=== PATIENT | female | born 1950 | race Caucasian/White ===

== ENCOUNTER 2016-05-02 14:29 | Emergency (ER) | payer OTHER ==
[~2016-05-02] VITALS: Ht 162.6 cm; Wt 64.5 kg
[~2016-05-02 14:29] MED LIST: ARMO60TA PO; DIPH25 PO; DUONSOL2 NEB; FISH1000 PO; HYDR50TA5 PO; LORA2TAB PO; LORTA10 PO; MOTR200T PO; MUCI120T; POTA595T2 PO; TAB-TAB PO; TURM450C PO; VITA500015 PO; VITA500T49 PO; WELL200T OR
[2016-05-02 14:50] VITALS: BP 122/86; PULSE 102; RESP 16; TEMP 98; O2SAT 98
--- NOTE | 2016-05-02 15:10 | PD ---
HPI Chief Complaint: Cold / Flu Symptoms Time Seen by Provider: 15:10 Travel History International Travel<30 days: No Contact w/Intl Traveler<30days: No Traveled to known affect area: No History of Present Illness HPI 65-year-old female brought in by with 3 day history of increasing cough congestion starting in the head and now settling in the posterior pharynx and chest. Patient has a history of chronic bronchiectasis for which she sees Dr. barrientos the [facility] fix[facility]. Patient states she did have a low-grade fever and headache at the beginning but not currently. She denies sore throat or ear pain. She denies significant wheezing or shortness of breath , but does have a productive cough. Patient denies nausea, vomiting, or abdominal pain. Patient has required an inhaler as well as nebulizers and prednisone in the past. She is allergic to Darvon and adhesives. 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 HIPS) Oral Surgery: Yes (DEVIATED SEPTUM,) Pacemaker: No Social History Alcohol Use: Yes Tobacco Use: No Substance Use: No Allergies-Medications (Allergen,Severity, Reaction): Coded Allergies: Darvon (Unverified Allergy, Severe, LIGHTHEADNESS, SKIN TURNED RED, NAUSEA , DIFFICULTY BREATHING, 05/02/16) Adhesives (Unverified Adverse Reaction, Severe, TEARS SKIN OFF, 05/02/16) Reported Meds & Prescriptions Reported Meds & Active Scripts Active Prednisone 20 Mg Tab 20 Mg PO DAILY Flonase Allergy Relief Children Nasal [place] (Fluticasone Nasal [place]) 50 Mcg/ Act [place] 2 [place] EACH NARE DAILY 50 mcg/spray Amoxicillin 875 Mg Tab 875 Mg PO BID Reported Gabapentin 300 Mg Cap 300 Mg PO AC LUNCH Gabapentin 300 Mg Cap 900 Mg PO BID Levothyroxine (Levothyroxine Sodium) 25 Mcg Tab Unknown Dose PO DAILY Mucinex D (Pseudoephedrine-Guaifenesin) 60-600 Mg Tab 1 Tab PO BID PRN Potassium Gluconate 595 Mg Tab 1 Tab PO DAILY Lorazepam 2 Mg Tab 2 Mg PO TID PRN Ibuprofen 200 Mg Cap 800 Mg PO TID PRN Hydrocodone-Acetaminophen 10-325 mg Tab 1 Tab PO Q4H PRN Benadryl Allergy (Diphenhydramine HCl) 25 Mg Tab 1-2 Tab PO Q6H PRN Vitamin B-12 (Cyanocobalamin) 5,000 Mcg Tab 5,000 Mcg PO DAILY PRN Vitamin B12 Tr (Cyanocobalamin) 1,000 Mcg Tab 1,000 Mcg PO DAILY Vitamin D3 (Cholecalciferol) 5,000 Unit Tab 5,000 Units PO DAILY Bupropion HCl ER 12 HR (Bupropion HCl) 200 Mg Tab 200 Mg PO BID Review of Systems Except as stated in HPI: all other systems reviewed are Neg General / Constitutional: Positive: Fever, No: Chills (in the beginning and not currently.) Eyes: No: Visual changes HENT: Positive: Headaches, Sore Throat (from cough.), Congestion, No: Vertigo , Lightheadedness, Rhinitis, Rhinorrhea, Nosebleed, Neck Stiffness, Neck Pain, Ear Discharge, Earache Cardiovascular: No: Chest Pain or Discomfort Respiratory: Positive: Cough, Shortness of Breath, Wheezing, No: Sneezing, Orthopnea, Hemoptysis, Night Sweats, Pleuritic Pain Gastrointestinal: No: Nausea, Vomiting, Diarrhea, Abdominal Pain Genitourinary: No: Dysuria Musculoskeletal: No: Pain Skin: No Rash Neurologic: No: Weakness Psychiatric: No: Depression Endocrine: No: Polydipsia Hematologic/Lymphatic: No: Easy Bruising Physical Exam Narrative GENERAL: Patient appears in mild distress. Patient does not have a wet productive cough during my exam. SKIN: Warm and dry. Normal color. Normal turgor. No diaphoresis. HEAD: Atraumatic. Normocephalic. EYES: Pupils equal and round. No scleral icterus. No injection or drainage. ENT: No nasal bleeding or discharge. Mucous membranes pink and moist. TMs are clear bilaterally. Mild to moderate sinus tenderness is present. Pharynx is somewhat injected with cobblestoning present postnasal drip noted. NECK: Trachea midline. No JVD. Supple nontender without significant lymphadenopathy. CARDIOVASCULAR: Regular rate and rhythm. RESPIRATORY: No accessory muscle use. Coarse but without wheezes to auscultation. No rales or rhonchi. Breath sounds equal bilaterally. MUSCULOSKELETAL: Extremities without clubbing, cyanosis, or edema. No obvious deformities. NEUROLOGICAL: Awake and alert. No obvious cranial nerve deficits. Motor grossly within normal limits. Five out of 5 muscle strength in the arms and legs. Normal speech. PSYCHIATRIC: Appropriate mood and affect; insight and judgment normal. Data Data Last Documented VS Vital Signs Date Time Temp Pulse Resp B/P Pulse Ox O2 Delivery O2 Flow Rate FiO2 05/02/16 15:27 16 97 Room Air 05/02/16 14:50 98.0 102 122/86 Orders Prednisone (Deltasone) (05/02/16 15:45) MDM Medical Decision Making Medical Screen Exam Complete: Yes Emergency Medical Condition: Yes Differential Diagnosis Sinusitis, bronchitis, bronchiectasis flare. Narrative Course Patient is medically stable at time of exam. Patient is given 60 mg prednisone by mouth. Patient will be treated with amoxicillin 875 twice a day 10 days. Patient is continue her prednisone 20 mg daily for the next 5 days. Patient is given Flonase nasal spray 2 sprays each nostril daily. Patient is to use her nebulizer as needed over the next several days. Patient to follow with Dr. Barrientos if symptoms do not improve, or return to emergency Department with worsening symptoms. Diagnosis Primary Impression: Sinusitis, acute Qualified Code: J01.90 - Acute sinusitis, recurrence not specified, unspecified location Additional Impression: Bronchitis Patient Instructions: General Instructions Additional Instructions: Patient is given 60 mg prednisone by mouth. Patient will be treated with amoxicillin 875 twice a day 10 days. Patient is continue her prednisone 20 mg daily for the next 5 days. Patient is given Flonase nasal spray 2 sprays each nostril daily. Patient is to use her nebulizer as needed over the next several days. Patient to follow with Dr. Barrientos if symptoms do not improve, or return to emergency Department with worsening symptoms. Med/Other Pt SpecificInfo: Prescription(s) given Scripts Prednisone 20 Mg Tab20 Mg PO DAILY #5 TAB Prov:Camilo Jorgensen MD 05/02/16 Fluticasone Nasal [place] (Flonase Allergy Relief Children Nasal [place])50 Mcg/Act Spray2 [place] EACH NARE DAILY #1 BOTTLE 50 mcg/spray Prov:Camilo Jorgensen MD 05/02/16 Amoxicillin 875 Mg [id number] Mg PO BID #20 TAB Prov:Camilo Jorgensen MD 05/02/16 Disposition: 01 DISCHARGE HOME Condition: Stable Chinmay Valdez May 02, 2016 15:10
[2016-05-02] MEDS ORDERED: BENA25TA3 PO (15:26)
[2016-05-02] MEDS ORDERED: MUCI60TA5 PO (15:26)
[2016-05-02] MEDS ORDERED: IBUP200C PO (15:26)
[2016-05-02] MEDS ORDERED: LORA2TAB7 PO (15:26)
[2016-05-02] MEDS ORDERED: POTA595T PO (15:26)
[2016-05-02] MEDS ORDERED: HYDR-3583 PO (15:26)
[2016-05-02] MEDS ORDERED: GABA300C5 PO ×2 (15:26)
[2016-05-02] MEDS ORDERED: CHOL50008 PO (15:26)
[2016-05-02] MEDS ORDERED: CYAN1TAB22 PO (15:26)
[2016-05-02] MEDS ORDERED: BUPR200T PO (15:26)
[2016-05-02] MEDS ORDERED: VITA10004 PO (15:26)
[2016-05-02] MEDS ORDERED: LEVO25TA4 PO (15:26)
[2016-05-02] MEDS ORDERED: AMOX875T PO (15:38)
[2016-05-02] MEDS ORDERED: PRED20 PO (15:38)
[2016-05-02] MEDS ORDERED: FLUT1SPR9 EACH NARE (15:38)
[2016-05-02] MEDS ORDERED: predniSONE 20 MG TAB PO ONE (15:45)
== END 2016-05-02 15:50 | disposition home or self-care (01) ==
LOC: PHEFT 14:29
DX: J01.90 Acute sinusitis, unspecified (principal); J47.9 Bronchiectasis, uncomplicated
CPT/HCPCS: 99283; J7512